=== PATIENT | male | born 1980 | race Caucasian/White ===

== ENCOUNTER 2017-06-26 16:31 | Emergency (ER) | payer OTHER ==
[~2017-06-26] VITALS: Ht 182.9 cm; Wt 95.3 kg
[2017-06-26] MEDS ORDERED: IV RINGERS SOLUTION,LACTATED 1,000 ML IV ONE ×2 (17:15→19:30)
[2017-06-26] MEDS ORDERED: IOHEXOL 240 MG/ML 50ML VIAL. ONE (17:22)
--- NOTE | 2017-06-26 17:26 | PHYS DOC ---
Past History Past Medical History: No Pertinent History Past Surgical History: Other Smoking: Non-smoker Alcohol Use: None Drug Use: None Adult General Chief Complaint Chief Complaint: ABDOMINAL PAIN [facility] HPI 37-year-old male patient complaining of discomfort and pressure feeling pain in right side of his abdomen for the last or 4 days as a constant pain that getting more constant and sharp today. Patient complaining of anorexia and subjective fever and chills. Patient rated his pain 8/10 and stated the pain radiated to genital area and right flank pain and getting worse with movement. Patient denies urinary symptom and complaining of constipation. Patient states he had a bowel movement today without change of his pain. Review of Systems Review of Systems Constitutional: Reports fever or chills [] Eyes: Denies change in visual acuity, redness, or eye pain [] HENT: Denies nasal congestion or sore throat [] Respiratory: Denies cough or shortness of breath [] Cardiovascular: No additional information not addressed in HPI [] GI: Denies nausea, vomiting, bloody stools or diarrhea , reports abdominal pain and constipation[] : Denies dysuria or hematuria [] Musculoskeletal: Denies back pain or joint pain [] Integument: Denies rash or skin lesions [] Neurologic: Denies headache, focal weakness or sensory changes [] Endocrine: Denies polyuria or polydipsia [] All other systems were reviewed and found to be within normal limits, except as documented in this note. Family History Family History Father= Hx of inflammatory bowel disease/Crohn's Current Medications Current Medications Current Medications Medications (Trade) Dose Ordered Sig/Beverley Start Time Stop Time Status Last Admin Dose Admin Lactated Ringer's 1,000 ml @ 75 mls/hr 1X ONCE 06/26/17 17:15 06/27/17 06:34 Ondansetron HCl (Zofran) 4 mg 1X ONCE 06/26/17 17:30 06/26/17 17:31 Allergies Allergies Allergies Coded Allergies Type Severity Reaction Last Updated Verified No Known Drug Allergies 06/26/17 No Physical Exam Physical Exam Constitutional: Well developed, well nourished, moderate distress, non-toxic appearance. [] HENT: Normocephalic, atraumatic, bilateral external ears normal, oropharynx moist, no oral exudates, nose normal. [] Eyes: PERRLA, EOMI, conjunctiva normal, no discharge. [] Neck: Normal range of motion, no tenderness, supple, no stridor. [] Cardiovascular:Heart rate regular rhythm, no murmur [] Lungs & Thorax: Bilateral breath sounds clear to auscultation [] Abdomen: Bowel sounds normal, soft, tenderness and rebound tenderness in the right lower quadrant, no masses, no pulsatile masses. [] Skin: Warm, dry, no erythema, no rash. [] Back: No tenderness, no CVA tenderness. [] Extremities: No tenderness, no cyanosis, no clubbing, ROM intact, no edema. [] Neurologic: Alert and oriented X 3, normal motor function, normal sensory function, no focal deficits noted. [] Psychologic: Affect normal, judgement normal, mood normal. [] Re-exam 1899- Mr. Chilango Flores, [employer] and training at [employer] Rt. Lower quadrant pain. + Rebound to Rt.lower. + Heel tap, obturator, psoas. Last ate sandwich at 1200 hrs. No previous abd. surgeries, except circumcision. Has had right foot surgery. No recent travel, specific ill contacts, bad food, and trauma. Father hx of Crohns. Pt. no hx of inflammatory bowel dz. No hx bleeding disorder. Current Patient Data Vital Signs Vital Signs Date Time Temp Pulse Resp B/P (MAP) Pulse Ox O2 Delivery O2 Flow Rate FiO2 06/26/17 16:53 98.6 76 18 97 EKG EKG [] Radiology/Procedures Radiology/Procedures CT= thicken appendix- suggestive appendicitis[] Impressions: 1. Leukocytosis 2. Rt. Lower pelvic pain 3. Appendicitis Course & Med Decision Making Course & Med Decision Making Pertinent Labs and Imaging studies pending. (See chart for details) Patient care transferred to Dr. Blackman at 1800. Discussed presentation, testing and treatment plan with Dr. Montiel. Advised transfer pt. for possible surgery tonight. 1930 hrs. [] Dragon Disclaimer Dragon Disclaimer This electronic medical record was generated, in whole or in part, using a voice recognition dictation system. EDGARD MAY MD Jun 26, 2017 17:26 ERIC BLACKMAN MD Jun 26, 2017 19:27
[2017-06-26 17:29] LABS: BASO # 0.1 x10^3/uL (0.0-0.2); BASO % 1 % (0-3); EOS # 0.2 x10^3/uL (0.0-0.7); EOS % 2 % (0-3); HEMATOCRIT 42.6 % (39.0-53.0); HEMOGLOBIN 14.8 g/dL (13.0-17.5); LYMPH # 2.1 x10^3/uL (1.0-4.8); LYMPH % 17 % (24-48); MEAN CORPUSCULAR HEMOGLOBIN 30 pg (25-35); MEAN CORPUSCULAR HGB CONC 35 g/dL (31-37); MEAN CORPUSCULAR VOLUME 87 fL (79-100); MONO # 0.7 x10^3/uL (0.0-1.1); MONO % 5 % (0-9); NEUT # 9.3 x10^3uL (1.8-7.7); NEUT % 75 % (31-73); PLATELET COUNT 207 x10^3/uL (140-400); RED BLOOD COUNT 4.91 x10^6/uL (4.30-5.70); WHITE BLOOD COUNT 12.3 x10^3/uL (4.0-11.0)
[2017-06-26] MEDS ORDERED: MORPHINE SULFATE 4 MG/ML DISP.SYRIN. IV ONE ×2 (17:30→20:00)
[2017-06-26] MEDS ORDERED: IOHEXOL 300 MG/ML 75 ML VIAL. IV ONE (17:30)
[2017-06-26] MEDS ORDERED: ONDANSETRON PF 4 MG/2 ML VIAL. IV ONE (17:30)
[2017-06-26 17:42] LABS: ALBUMIN 4.2 g/dL (3.4-5.0); ALBUMIN/GLOBULIN RATIO 1.4 (1.0-1.7); CALCIUM 9.1 mg/dL (8.5-10.1); CREATININE 1.1 mg/dL (0.7-1.3); GFR 76.2; POTASSIUM 4.2 mmol/L (3.5-5.1); TOTAL BILIRUBIN 0.4 mg/dL (0.2-1.0); TOTAL PROTEIN 7.2 g/dL (6.4-8.2)
[2017-06-26 17:59] LABS: BACTERIA,URINE 0 /HPF (0-FEW); BILIRUBIN,URINE NEG (NEG); CLARITY,URINE CLEAR; COLOR,URINE STRAW; GLUCOSE,URINE NEG (NEG); NITRITE,URINE NEG (NEG); RBC,URINE 0 /HPF (0-2); SQUAMOUS EPITHELIAL CELL,UR OCC /LPF; UROBILINOGEN,URINE 0.2 mg/dL (0.2 mg/dL); WBC,URINE OCC /HPF (0-4)
--- NOTE | 2017-06-26 19:14 | RAD ---
CT SCAN OF THE ABDOMEN AND PELVIS WITH IV CONTRAST. History: Abdominal pain Comparison:None. Procedure: Contiguous axial images of the abdomen and pelvis were performed after the administration of 30 cc of Omni 300 IV contrast and oral contrast. CT Abdomen with contrast: Findings: Liver: Unremarkable Spleen: Unremarkable Pancreas: Unremarkable Adrenal Glands: Unremarkable Kidneys: Right kidney appears normal. There is a small cyst in the upper pole of left kidney. There is no mass or lymphadenopathy. There is no free air. There is no free fluid. CT Pelvis with Contrast: Findings: The appendix is seen inferior to the cecum in the right hemipelvis and the distal appendix is dilated to 1.7 cm and has moderate wall thickening and enhancement and minimal surrounding inflammation. The urinary bladder is well distended but otherwise appears normal. There is no free fluid. There is no lymphadenopathy. Impression: Abnormal study consistent with early acute appendicitis. PQRS Compliance Statement: One or more of the following individualized dose reduction techniques were utilized for this examination: 1. Automated exposure control 2. Adjustment of the mA and/or kV according to patient size 3. Use of iterative reconstruction technique Electronically signed by: Joseph Fuentes III, MD (06/26/2017 7:11 PM) [facility]
[2017-06-26] MEDS ORDERED: IV NORMAL SALINE 50ML 50 ML ONE (19:31)
[2017-06-26] MEDS ORDERED: cefTRIAXone SODIUM 1 GM VIAL IV ONE (19:31)
[2017-06-26 19:45] VITALS: BP 162/88
== END 2017-06-26 20:30 | disposition short-term general hospital (02) ==
LOC: ER 16:31
DX: K35.80 Unspecified acute appendicitis (principal); D72.829 Elevated white blood cell count, unspecified
CPT/HCPCS: 36415; 74177; 80053; 81001; 83690; 85025; 96361; 96365; 96368; 96375; 99285; J0696; J2270; J2405; J3490; J7120; Q9967